=== PATIENT | male | born 1995 ===

== ENCOUNTER 2024-05-29 22:40 | Emergency (ER) | payer SELFPAY ==
[~2024-05-29] VITALS: Ht 172.7 cm; Wt 81.7 kg
== END 2024-05-29 23:22 | disposition home or self-care (01) ==
LOC: ER 22:40
DX: F10.10 Alcohol abuse, uncomplicated (principal); F43.10 Post-traumatic stress disorder, unspecified; Z76.0 Encounter for issue of repeat prescription
CPT/HCPCS: 99281